=== PATIENT | female | born 1970 | race Caucasian/White ===

== ENCOUNTER 2024-04-19 15:40 | Emergency (ER) | payer OTHER, SELFPAY ==
[2024-04-19 15:58] VITALS: BP 127/83; PULSE 77; RESP 16; TEMP 36.6; O2SAT 100
[2024-04-19 16:31] LABS: EDCOVIDSCREEN Negative (Negative); EDINFLUASCREEN Positive (Negative); EDINFLUBSCREEN Negative (Negative); EDSTREPNEGPOS1 Negative (Negative)
--- NOTE | 2024-04-19 16:34 | ED.GENADULT ---
HPI - General Adult General Chief complaint: Upper Respiratory Infection Stated complaint: Upper Respiratory Symptoms Source: patient Mode of arrival: ambulatory Limitations: no limitations History of Present Illness HPI narrative: Patient presents for evaluation of sick symptoms. Symptom onset initially 5 days ago. She had improvement in her symptoms and then symptom recurrence two days ago. Symptoms include cough, wheezing, fever, sore throat, ear pain and diarrhea. She denies any vomiting and chills. She tried taking dayquil and chloraseptic for her symptoms. She has been around several individuals with been sick as of late but she is not aware of a specific assigned medical diagnosis. She does not smoke. Related Data Home Medications ?Medication ?Instructions ?Recorded ?Confirmed ?Last Taken ?Type azelastine 137 mcg (0.1 %) nasal 2 spray intranasal Q12H 04/19/24 04/19/24 Unknown History spray buspirone 10 mg tablet 10 mg PO TID 04/19/24 04/19/24 Unknown History carvedilol 12.5 mg tablet 12.5 mg PO DAILY 04/19/24 04/19/24 Unknown History escitalopram oxalate 10 mg tablet 10 mg PO DAILY 04/19/24 04/19/24 Unknown History escitalopram oxalate 20 mg tablet 20 mg PO DAILY 04/19/24 04/19/24 Unknown History estradiol 1 mg tablet 1 mg PO DAILY 04/19/24 04/19/24 Unknown History furosemide 20 mg tablet 20 mg PO DAILY 04/19/24 04/19/24 Unknown History gabapentin 300 mg capsule 300 mg PO DAILY 04/19/24 04/19/24 Unknown History peg 3350-electrolytes 236 30 ml PO DAILY 04/19/24 04/19/24 Unknown History gram-22.74 gram-6.74 gram-5.86 gram solution (GaviLyte-G) sacubitril 97 mg-valsartan 103 mg 1 tablet PO BID 04/19/24 04/19/24 Unknown History tablet (Entresto) Allergies Allergy/AdvReac Type Severity Reaction Status Date / Time No Known Allergies Allergy Verified 04/19/24 15:51 Review of Systems Review of Systems: CONSTITUTIONAL: Reports fever and recent diaphoresis EYES: Denies visual changes, redness, or discharge. ENT: Reports sore throat and bilateral otalgia. Denies sinus congestion. CARDIOVASCULAR: Denies chest pain, palpitations, or edema. RESPIRATORY: Reports cough and wheezing GASTROINTESTINAL: Reports diarrhea. Denies abdominal pain, nausea, or vomiting. GENITOURINARY: Denies dysuria or hematuria. SKIN: Denies rash or itching. MUSCULOSKELETAL: Reports generalized body aches NEUROLOGIC: Denies headache, numbness, dizziness, or weakness. PSYCHIATRIC: Denies anxiety or depression. FOR[facility], [facility] Past Medical History Medical History Congenital heart defect Surgical History Surgical History History of open heart surgery Family History Family History Mother Family history non-contributory Social History Social History (Updated 04/19/24 @ 16:43 by MO PelaezP, ) Smoking status: Never smoker Substance use: never Gender identity (if verbalized by the patient): Female Spiritual care concerns: No Exam Narrative: GENERAL: Well-appearing, well-nourished, and in no acute distress. HEAD: Normocephalic, atraumatic. EYES: PERRLA and EOMI. ENT: Nares clear, no rhinorrhea or epistaxis. Mucous membranes moist. Oropharynx without tonsillar hypertrophy exudate or other lesions. Bilateral TMs pearly woodruff nonbulging NECK: Supple. No adenopathy or masses. No carotid bruits or JVD CHEST: Clear to auscultation. No respiratory distress. No wheezes rales or rhonchi HEART: Regular rate and rhythm. No murmur heard. Normal peripheral pulses. ABDOMEN: Soft, nontender, nondistended, normal active bowel sounds. EXTREMITIES: Normal range of motion. No edema. SKIN: Warm, dry, no rash. NEURO: No focal deficits. Alert and oriented x3. PSYCH: Normal mood and affect. Course Course Emergency Course: This is a 53 year old female who presented for evaluation of sick symptoms. Strep and COVID negative. Influenza positive. Date of symptom onset somewhat unclear as she had recurrence of symptoms about 48 hrs ago. Will dc with tamiflu. Increase hydration. OTC agents for symptom management. Follow up with primary care provider. Go to the ER for worsening symptoms. Pt in agreement with plan of care. Level of Care: Express Care Visit Vital Signs Vital signs: Vital Signs Temperature 36.6 C 04/19/24 15:58 Pulse Rate 77 04/19/24 15:58 Respiratory Rate 16 04/19/24 15:58 Blood Pressure 127/83 04/19/24 15:58 Pulse Oximetry 100 04/19/24 15:58 Temperature 36.6 C 04/19/24 15:58 Pulse Rate 77 04/19/24 15:58 Respiratory Rate 16 04/19/24 15:58 Blood Pressure 127/83 04/19/24 15:58 Pulse Oximetry 100 04/19/24 15:58 Medical Decision Making Vital Signs Vital Signs: Vital Signs Temperature 36.6 C 04/19/24 15:58 Pulse Rate 77 04/19/24 15:58 Respiratory Rate 16 04/19/24 15:58 Blood Pressure 127/83 04/19/24 15:58 Pulse Oximetry 100 04/19/24 15:58 Temperature 36.6 C 04/19/24 15:58 Pulse Rate 77 04/19/24 15:58 Respiratory Rate 16 04/19/24 15:58 Blood Pressure 127/83 04/19/24 15:58 Pulse Oximetry 100 04/19/24 15:58 Lab Data Labs: Lab Results 04/19/24 Range/Units 16:29 POC Influenza A Ag Positive (Negative) POC Influenza B Ag Negative (Negative) POC SARS CoV-2 Ag Negative (Negative) POC Grp A Strep Screen Negative (Negative) Discharge Plan Discharge Clinical Impression: Influenza A Patient Disposition: Home, Self-Care Condition: Stable Instructions: Antibiotic Form, Influenza (ED) Patient Language: Russian Prescriptions: New oseltamivir [Tamiflu] 75 mg capsule 75 mg PO Q12H 5 Days Qty: 10 0RF No Action sacubitril-valsartan [Entresto] 97-103 mg tablet 1 tablet PO BID azelastine 137 mcg (0.1 %) spray,non-aerosol 2 spray INTRANASAL Q12H buspirone 10 mg tablet 10 mg PO TID carvedilol 12.5 mg tablet 12.5 mg PO DAILY escitalopram oxalate 10 mg tablet 10 mg PO DAILY escitalopram oxalate 20 mg tablet 20 mg PO DAILY estradiol 1 mg tablet 1 mg PO DAILY furosemide 20 mg tablet 20 mg PO DAILY gabapentin 300 mg capsule 300 mg PO DAILY peg 3350-electrolytes [GaviLyte-G] 236-22.74-6.74 -5.86 gram recon soln 30 ml PO DAILY Follow-up/Referrals: Shana Daniel DO [Physician] - Time of Disposition: 16:34
== END 2024-04-19 16:39 | disposition home or self-care (01) ==
PROVIDERS: Emergency Provider Nurse Practitioner
DX: J10.1 Influenza due to other identified influenza virus with other respiratory manifestations (principal); Z79.899 Other long term (current) drug therapy; Z20.822 Contact with and (suspected) exposure to COVID-19
CPT/HCPCS: 87081; 87426; 87804; 87880; 99203; G0463

== ENCOUNTER 2025-01-15 18:37 | Emergency (ER) | payer OTHER, SELFPAY ==
--- NOTE | ~2025-01-15 | CT_ITS ---
CT abdomen pelvis w con Clinical History: bilateral back pain radiates to abdomen . Comparison: None Technique: Axial images lung bases to symphysis pubis 100 mL Omnipaque 350 Coronal, sagittal reformats CT images acquired with automatic exposure control for dose reduction DLP: 265 mGy-cm Findings: Lung bases: Clear. Visualized heart and pericardium: Unremarkable. Liver: Enlarged. Steatosis. A few cysts. Gallbladder: Unremarkable. Spleen: Unremarkable. Pancreas: Unremarkable. Adrenal glands: Unremarkable. Kidneys: Right kidney- No hydronephrosis. A few stones. Left kidney- No hydronephrosis. A few stones. Cortical thinning. Subtle areas of decreased enhancement Distal esophagus/stomach: Gastric antral wall thickening. Small bowel loops: Normal caliber and wall thickness. Colon: Diverticula. Normal caliber and wall thickness. Normal RLQ appendix. Nodes: No enlarged nodes. Peritoneum: No ascites. No free air. Urinary bladder: Unremarkable. Uterus: Removed. Adnexa: No masses. Bones: No acute bony abnormality. Grade 1 anterolisthesis L4 on 5. Soft tissues: Unremarkable. Aorta: No aneurysm or dissection. Mild atherosclerotic disease. IVC: Unremarkable. Main portal vein/SMV/splenic vein: Patent. IMPRESSION: 1. Bilateral renal stones. No hydronephrosis. 2. Mild pyelonephritis left kidney not excluded. 3. Mild gastric antritis not excluded. 4. Additional findings as above. Reviewed, dictated and finalized at location R. 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
[2025-01-15 19:19] VITALS: BP 128/77; PULSE 84; RESP 14; TEMP 36.6; O2SAT 99
--- NOTE | 2025-01-15 22:59 | ED.NAVMDI ---
HPI - Nausea/Vomiting/Diarrhea General Chief complaint: Nausea/Vomiting/Diarrhea <Kaylan Hand APRN - Last Filed: 01/16/25 04:29> Stated complaint: back pain, nausea <Kaylan Hand APRN - Last Filed: 01/16/25 04:29> Time Seen by Provider: 01/15/25 21:57 <Kaylan Hand APRN - Last Filed: 01/16/25 04:29> History of Present Illness HPI Narrative: Patient is a 54-year-old female who presents to the ER with abdominal pain and nausea that has been going on for ?a while. She endorses decreased p.o. intake and reports the nausea has progressively gotten worse. Patient denies any recent fevers, vomiting, or urinary symptoms. She also endorses pain that starts in her lower back and radiates to her hips bilaterally. Patient reports her last bowel movement was yesterday. She reports she has had a upper and lower GI scope in the past with no acute findings. Patient endorses a medical history of open-heart surgery, quadrant cuspid heart valve, and kidney stones that have never obstructed. <Kaylan Hand APRN - Last Filed: 01/16/25 04:29> Related Data Home medications: Home Medications ?Medication ?Instructions ?Recorded ?Confirmed ?Last Taken ?Type azelastine 137 mcg (0.1 %) nasal 2 spray intranasal Q12H 04/19/24 04/19/24 Unknown History spray buspirone 10 mg tablet 10 mg PO TID 04/19/24 04/19/24 Unknown History carvedilol 12.5 mg tablet 12.5 mg PO DAILY 04/19/24 04/19/24 Unknown History escitalopram oxalate 10 mg tablet 10 mg PO DAILY 04/19/24 04/19/24 Unknown History escitalopram oxalate 20 mg tablet 20 mg PO DAILY 04/19/24 04/19/24 Unknown History estradiol 1 mg tablet 1 mg PO DAILY 04/19/24 04/19/24 Unknown History furosemide 20 mg tablet 20 mg PO DAILY 04/19/24 04/19/24 Unknown History gabapentin 300 mg capsule 300 mg PO DAILY 04/19/24 04/19/24 Unknown History peg 3350-electrolytes 236 30 ml PO DAILY 04/19/24 04/19/24 Unknown History gram-22.74 gram-6.74 gram-5.86 gram solution (GaviLyte-G) sacubitril 97 mg-valsartan 103 mg 1 tablet PO BID 04/19/24 04/19/24 Unknown History tablet (Entresto) <Kaylan Hand APRN - Last Filed: 01/16/25 04:29> Allergies/Adverse reactions: Allergies Allergy/AdvReac Type Severity Reaction Status Date / Time No Known Allergies Allergy Verified 04/19/24 15:51 <Kaylan Hand APRN - Last Filed: 01/16/25 04:29> Review of Systems Review of Systems: All systems reviewed & are unremarkable except as noted in HPI and below <Kaylan Hand APRN - Last Filed: 01/16/25 04:29> PMFSH Past Medical History Medical History: Medical History Congenital heart defect <Kaylan Hand APRN - Last Filed: 01/16/25 04:29> Surgical History Surgical History: Surgical History History of open heart surgery <Kaylan Hand APRN - Last Filed: 01/16/25 04:29> Family History Family History: Family History Mother Family history non-contributory <Kaylan Hand APRN - Last Filed: 01/16/25 04:29> Social History Social History: Social History Smoking status: Never smoker Substance use: never Gender identity (if verbalized by the patient): Female Spiritual care concerns: No <Kaylan Hand APRN - Last Filed: 01/16/25 04:29> Exam Narrative: GENERAL: Well appearing, well-nourished, non-toxic, in no acute distress. HEAD: Normocephalic, atraumatic. NECK: Supple. No adenopathy, no masses. RESPIRATORY: Airway patent, respirations nonlabored. Clear to auscultation bilaterally, no rales, rhonchi, wheezing. CARDIOVASCULAR: Regular rate and rhythm without murmurs, rubs, or gallops. Peripheral pulses 2+ and equal bilaterally. ABDOMINAL: Soft, mid abdominal tenderness, nondistended, no hepatosplenomegaly. Normoactive BS. MUSCULOSKELETAL: Moves all extremities. Strength/ROM intact without gross deformities. SKIN: Warm, dry, normal color. No rashes. NEURO: A&O X3. Speech clear. Cranial nerves II-XII intact. No ataxic movements. PSYCHIATRIC: Appropriate mood and affect. Normal interaction. <Kaylan Hand, SAND SIFTER - Last Filed: 01/16/25 04:29> Course Vital Signs Vital signs: Vital Signs Temperature 97.8 F 01/15/25 19:19 Pulse Rate 84 01/15/25 19:19 Respiratory Rate 14 01/15/25 19:19 Blood Pressure 128/77 01/15/25 19:19 Pulse Oximetry 99 01/15/25 19:19 Oxygen Delivery Room Air 01/15/25 19:19 Temperature 97.8 F 01/15/25 19:19 Pulse Rate 78 01/16/25 05:11 Respiratory Rate 20 01/16/25 05:11 Blood Pressure 158/79 H 01/16/25 05:11 Pulse Oximetry 99 01/16/25 05:11 Oxygen Delivery Room Air 01/15/25 19:19 <Kaylan Hand, SAND SIFTER - Last Filed: 01/16/25 04:29> Vital Signs Temperature 97.8 F 01/15/25 19:19 Pulse Rate 84 01/15/25 19:19 Respiratory Rate 14 01/15/25 19:19 Blood Pressure 128/77 01/15/25 19:19 Pulse Oximetry 99 01/15/25 19:19 Oxygen Delivery Room Air 01/15/25 19:19 Temperature 97.8 F 01/15/25 19:19 Pulse Rate 78 01/16/25 05:11 Respiratory Rate 20 01/16/25 05:11 Blood Pressure 158/79 H 01/16/25 05:11 Pulse Oximetry 99 01/16/25 05:11 Oxygen Delivery Room Air 01/15/25 19:19 <Daryn Florentino DO - Last Filed: 01/16/25 05:26> MDM - Nausea/Vomiting/Diarrhea MDM Narrative Medical decision making narrative: Patient is a 54-year-old female who presents to the ER with abdominal pain and nausea that has been going on for ?a while. She endorses decreased p.o. intake and reports the nausea has progressively gotten worse. Patient denies any recent fevers, vomiting, or urinary symptoms. She also endorses pain that starts in her lower back and radiates to her hips bilaterally. Patient reports her last bowel movement was yesterday. She reports she has had a upper and lower GI scope in the past with no acute findings. Patient endorses a medical history of open-heart surgery, quadrant cuspid heart valve, and kidney stones that have never obstructed. Labs Ordered: CBC, CMP, UDS, UA, lipase, PTT, INR Imaging Ordered: CT abdomen pelvis Medications Ordered: 1 L normal saline IV bolus, Pepcid IV, Zofran IV, Protonix IV Results: Patient's CT scan indicates nonobstructing bilateral renal calculi. No obstructive uropathy. Bilateral renal cortical thinning/scarring. Questionable superimposed left renal infection/pyelonephritis. Correlate clinically. Urinary bladder wall thickening, nonspecific. Correlate with urinalysis. No bowel obstruction or inflammation. Normal appendix. Hepatic steatosis and hepatomegaly. Multiple hepatic cysts. Diagnosis: Risks: HEART score, PECARN score, CURB-65 score Consults: <Kaylan Hand APRN - Last Filed: 01/16/25 04:29> Patient is a 54-year-old female who presents to the ER with abdominal pain and nausea that has been going on for ?a while. She endorses decreased p.o. intake and reports the nausea has progressively gotten worse. Patient denies any recent fevers, vomiting, or urinary symptoms. She also endorses pain that starts in her lower back and radiates to her hips bilaterally. Patient reports her last bowel movement was yesterday. She reports she has had a upper and lower GI scope in the past with no acute findings. Patient endorses a medical history of open-heart surgery, quadrant cuspid heart valve, and kidney stones that have never obstructed. Labs Ordered: CBC, CMP, UDS, UA, lipase, PTT, INR Imaging Ordered: CT abdomen pelvis Medications Ordered: 1 L normal saline IV bolus, Pepcid IV, Zofran IV, Protonix IV Results: Patient's CT scan indicates nonobstructing bilateral renal calculi. No obstructive uropathy. Bilateral renal cortical thinning/scarring. Questionable superimposed left renal infection/pyelonephritis. Correlate clinically. Urinary bladder wall thickening, nonspecific. Correlate with urinalysis. No bowel obstruction or inflammation. Normal appendix. Hepatic steatosis and hepatomegaly. Multiple hepatic cysts. Diagnosis: Nausea and vomiting This visit was performed by both a physician and an Advanced Practice Provider. I performed all aspects of the Medical Decision Making as documented. On re-evaluation, Patient was feeling significantly better. Given CT findings and lab findings as above, she will require further evaluation by GI. She will be given a prescription for Zofran. Patient was agreeable to this plan. Given strict return precautions. <Daryn Florentino DO - Last Filed: 01/16/25 05:26> Lab Data Attestation: I reviewed the patient's lab results. <Daryn Florentino DO - Last Filed: 01/16/25 05:26> Result diagrams: 01/15/25 23:17 01/15/25 23:17 <Kaylan Hand, SAND SIFTER - Last Filed: 01/16/25 04:29> Labs: Lab Results 01/15/25 01/16/25 Range/Units 23:17 00:22 WBC 5.4 (4.5-10.0) K/mm3 RBC 4.06 L (4.2-5.4) M/mm3 Hgb 13.6 (12.0-15.0) g/dL Hct 39.2 (37.0-47.0) % MCV 96.6 (80-100) fl MCH 33.5 (26-34) pg MCHC 34.7 (32-36) g/dl RDW 15.2 H (11.5-14.5) % Plt Count 183 (150-375) k/mm3 MPV 10.4 (7.4-10.4) fl Immature Gran % (Auto) 0.4 (0-0.5) % Neut % (Auto) 50.8 (45.5-73.1) % Lymph % (Auto) 31.3 (18.3-44.2) % [place] % (Auto) 15.5 H (2.6-8.5) % Eos % (Auto) 1.3 (0-4.4) % Baso % (Auto) 0.7 (0.2-1.2) % Lymph # (Auto) 1.68 (0.9-3.2) K/mm3 [place] # (Auto) 0.8 H (0.1-0.6) K/mm3 Eos # (Auto) 0.1 (0-0.3) K/mm3 Baso # (Auto) 0.0 (0.0-0.1) K/mm3 Abs Immat Gran (auto) 0.02 (0.00-0.031) K/mm3 Absolute Neuts (auto) 2.7 (1.3-6.7) K/mm3 Absolute Nucleated RBC 0.000 (0.0-0.012) K/mm3 Nucleated RBC % 0.0 (0.0-0.2) % PT 15.6 H (11.1-14.7) Seconds INR 1.2 APTT 31.1 (22.3-36.8) Seconds Sodium 132 L (137-145) mmol/L Potassium 4.1 (3.4-5.0) mmol/L Chloride 104 (98-107) mmol/L Carbon Dioxide 21 L (22-30) mmol/L Anion Gap 7 (4-12) mmol/L BUN 35 H (7-17) mg/dL Creatinine 1.00 (0.7-1.0) mg/dL Estim Creat Clear Calc 44 ml/min Estimated GFR 58 L (59 - ) Glucose 90 (65-110) mg/dL Calcium 8.3 L (8.4-10.2) mg/dL Total Bilirubin 1.3 (0.2-1.3) mg/dL AST 228 H (14-36) U/L ALT 136 H (6-35) U/L Alkaline Phosphatase 89 (38-126) U/L Total Protein 6.6 (6.3-8.2) g/dL Albumin 3.6 (3.5-5.1) g/dL Lipase 230 (23-300) U/L Urine Color Yellow (Yellow) Urine Appearance Clear (Clear) Urine pH 5.0 (5.0-9.0) Ur Specific [place] 1.024 (1.001-1.035) Urine Protein Negative (Negative) mg/dL Urine Glucose (UA) Negative (Negative) mg/dL Urine Ketones Trace H (Negative) mg/dL Ur Blood (Man) Negative (Negative) Urine Nitrate Negative (Negative) Urine Bilirubin Negative (Negative) Urine Urobilinogen 0.2 (<2.0) mg/dL Leukocyte Esterase Rfl Negative (Negative) IRWIN/UL Urine Opiates Screen Negative (Negative) Urine Methadone Screen Negative (Negative) Ur Barbiturates Screen Negative (Negative) Ur Phencyclidine Scrn Negative (Negative) Ur Amphetamine Screen Negative (Negative) U Benzodiazepines Scrn Negative (Negative) Urine Cocaine Screen Negative (Negative) U Cannabinoids Screen Positive A (Negative) <Kaylan Hand, SAND SIFTER - Last Filed: 01/16/25 04:29> Lab Results 01/15/25 01/16/25 Range/Units 23:17 00:22 WBC 5.4 (4.5-10.0) K/mm3 RBC 4.06 L (4.2-5.4) M/mm3 Hgb 13.6 (12.0-15.0) g/dL Hct 39.2 (37.0-47.0) % MCV 96.6 (80-100) fl MCH 33.5 (26-34) pg MCHC 34.7 (32-36) g/dl RDW 15.2 H (11.5-14.5) % Plt Count 183 (150-375) k/mm3 MPV 10.4 (7.4-10.4) fl Immature Gran % (Auto) 0.4 (0-0.5) % Neut % (Auto) 50.8 (45.5-73.1) % Lymph % (Auto) 31.3 (18.3-44.2) % [place] % (Auto) 15.5 H (2.6-8.5) % Eos % (Auto) 1.3 (0-4.4) % Baso % (Auto) 0.7 (0.2-1.2) % Lymph # (Auto) 1.68 (0.9-3.2) K/mm3 [place] # (Auto) 0.8 H (0.1-0.6) K/mm3 Eos # (Auto) 0.1 (0-0.3) K/mm3 Baso # (Auto) 0.0 (0.0-0.1) K/mm3 Abs Immat Gran (auto) 0.02 (0.00-0.031) K/mm3 Absolute Neuts (auto) 2.7 (1.3-6.7) K/mm3 Absolute Nucleated RBC 0.000 (0.0-0.012) K/mm3 Nucleated RBC % 0.0 (0.0-0.2) % PT 15.6 H (11.1-14.7) Seconds INR 1.2 APTT 31.1 (22.3-36.8) Seconds Sodium 132 L (137-145) mmol/L Potassium 4.1 (3.4-5.0) mmol/L Chloride 104 (98-107) mmol/L Carbon Dioxide 21 L (22-30) mmol/L Anion Gap 7 (4-12) mmol/L BUN 35 H (7-17) mg/dL Creatinine 1.00 (0.7-1.0) mg/dL Estim Creat Clear Calc 44 ml/min Estimated GFR 58 L (59 - ) Glucose 90 (65-110) mg/dL Calcium 8.3 L (8.4-10.2) mg/dL Total Bilirubin 1.3 (0.2-1.3) mg/dL AST 228 H (14-36) U/L ALT 136 H (6-35) U/L Alkaline Phosphatase 89 (38-126) U/L Total Protein 6.6 (6.3-8.2) g/dL Albumin 3.6 (3.5-5.1) g/dL Lipase 230 (23-300) U/L Urine Color Yellow (Yellow) Urine Appearance Clear (Clear) Urine pH 5.0 (5.0-9.0) Ur Specific [place] 1.024 (1.001-1.035) Urine Protein Negative (Negative) mg/dL Urine Glucose (UA) Negative (Negative) mg/dL Urine Ketones Trace H (Negative) mg/dL Ur Blood (Man) Negative (Negative) Urine Nitrate Negative (Negative) Urine Bilirubin Negative (Negative) Urine Urobilinogen 0.2 (<2.0) mg/dL Leukocyte Esterase Rfl Negative (Negative) IRWIN/UL Urine Opiates Screen Negative (Negative) Urine Methadone Screen Negative (Negative) Ur Barbiturates Screen Negative (Negative) Ur Phencyclidine Scrn Negative (Negative) Ur Amphetamine Screen Negative (Negative) U Benzodiazepines Scrn Negative (Negative) Urine Cocaine Screen Negative (Negative) U Cannabinoids Screen Positive A (Negative) <Daryn Florentino DO - Last Filed: 01/16/25 05:26> Discharge Plan Discharge Clinical Impression: Acute hyponatremia, Transaminitis Nausea and vomiting Qualifiers: Vomiting type: unspecified Qualified Code(s): R11.2 - Nausea with vomiting, unspecified <Kaylan Hand APRN - Last Filed: 01/16/25 04:29> Patient Disposition: Home <Kaylan Hand APRN - Last Filed: 01/16/25 04:29> Condition: Stable <Kaylan Hand APRN - Last Filed: 01/16/25 04:29> Instructions: Antibiotic Form, Acute Nausea and Vomiting (ED) <Kaylan Hand APRN - Last Filed: 01/16/25 04:29> Additional Instructions: Your given a prescription for Zofran take this as prescribed. You were found to have elevated liver enzymes so a CT scan was obtained which did show some benign-appearing cysts. 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 You were given a referral to Dr. Gaxiola, if you cannot get in with your own outside plant field engineer. Return to the ED for any new or worsening symptoms. <Kaylan Hand APRN - Last Filed: 01/16/25 04:29> Patient Language: Mongolian <Kaylan Hand APRN - Last Filed: 01/16/25 04:29> Prescriptions: New ondansetron 4 mg tablet,disintegrating 4 mg PO Q8H PRN (Reason: nausea and vomiting) Qty: 14 0RF No Action sacubitril-valsartan [Entresto] 97-103 mg tablet 1 tablet PO BID azelastine 137 mcg (0.1 %) spray,non-aerosol 2 spray INTRANASAL Q12H buspirone 10 mg tablet 10 mg PO TID carvedilol 12.5 mg tablet 12.5 mg PO DAILY escitalopram oxalate 10 mg tablet 10 mg PO DAILY escitalopram oxalate 20 mg tablet 20 mg PO DAILY estradiol 1 mg tablet 1 mg PO DAILY furosemide 20 mg tablet 20 mg PO DAILY gabapentin 300 mg capsule 300 mg PO DAILY peg 3350-electrolytes [GaviLyte-G] 236-22.74-6.74 -5.86 gram recon soln 30 ml PO DAILY oseltamivir [Tamiflu] 75 mg capsule 75 mg PO Q12H 5 Days Qty: 10 0RF <Kaylan Hand, MAGGIE - Last Filed: 01/16/25 04:29> Follow-up/Referrals: PHYSICIAN,HUB BORER [Primary Care Provider, Internal Medicine] Rafael Gaxiola MD [Physician, Gastroenterology] <Kaylan Hand, SAND SIFTER - Last Filed: 01/16/25 04:29>
[2025-01-15] MEDS: SODIUM CHLORIDE 0.9% IV 1,000 ML 999 ML IV CONT (23:08)
[2025-01-15] MEDS: PANTOPRAZOLE SODIUM IV 40 MG VIAL IV PUSH (23:13)
[2025-01-15] MEDS: FAMOTIDINE 20 MG/2 ML VIAL IV PUSH (23:13)
[2025-01-15] MEDS: ONDANSETRON INJ 4 MG/2 ML VIAL IV PUSH (23:13)
[2025-01-15 23:15] VITALS: BP 122/92; PULSE 68; RESP 20; O2SAT 99
[2025-01-15 23:20] VITALS: BP 122/92; PULSE 69; RESP 19; O2SAT 99
[2025-01-15 23:21] LABS: Hematocrit 39.2 % (37.0-47.0); Hemoglobin 13.6 g/dL (12.0-15.0); Immature Granulocyte Percent A 0.4 % (0-0.5); Lymphocytes Absolute Auto 1.68 K/mm3 (0.9-3.2); Mean Corpuscular HGB Conc 34.7 g/dl (32-36); Mean Corpuscular Hemoglobin 33.5 pg (26-34); Mean Corpuscular Volume 96.6 fl (80-100); Nucleated Red Blood Cells Absolute Auto 0.000 K/mm3 (0.0-0.012); Nucleated Red Blood Cells Perc 0.0 % (0.0-0.2); Platelet Count Result 183 k/mm3 (150-375); Red Blood Count 4.06 M/mm3 (4.2-5.4); White Blood Count 5.4 K/mm3 (4.5-10.0)
[2025-01-15 23:31] VITALS: BP 157/88; PULSE 71; RESP 19; O2SAT 100
[2025-01-15 23:34] LABS: INR 1.2; Partial Thromboplastin Time 31.1 Seconds (22.3-36.8); Prothrombin Time 15.6 Seconds (11.1-14.7)
[2025-01-15 23:46] VITALS: BP 145/75; PULSE 70; RESP 23; O2SAT 100
[2025-01-16] VITALS (12 sets, daily range): BP systolic 158–164; BP diastolic 79–96; PULSE 64–86; RESP 15–36; O2SAT 99–100
[2025-01-16 00:07] LABS: Alanine Aminotransferase 136 U/L (6-35); Albumin Level 3.6 g/dL (3.5-5.1); Alkaline Phosphatase 89 U/L (38-126); Anion Gap 7 mmol/L (4-12); Aspartate Amino Transferase 228 U/L (14-36); Bilirubin,Total 1.3 mg/dL (0.2-1.3); Blood Urea Nitrogen 35 mg/dL (7-17); Calcium 8.3 mg/dL (8.4-10.2); Carbon Dioxide 21 mmol/L (22-30); Chloride 104 mmol/L (98-107); Estimated CRCL calculation 44 ml/min; Estimated Glomerular Filt Rate 58; Glucose 90 mg/dL (65-110); Potassium 4.1 mmol/L (3.4-5.0); Sodium 132 mmol/L (137-145); Total Protein 6.6 g/dL (6.3-8.2)
[2025-01-16 00:21] LABS: Lipase 230 U/L (23-300)
[2025-01-16 00:47] LABS: Cannabinoid Screen Urine Positive (Negative)
[2025-01-16 01:06] LABS: Add Urine Microscopic? NO; Appearance Urine Clear (Clear); Glucose Urine UA Negative (Negative); Leukocyte Esterase Ur Negative LEU/UL (Negative); Nitrate Urine Negative (Negative); Specific Grav Ur 1.024 (1.001-1.035)
[2025-01-16] MEDS: ONDANSETRON INJ 4 MG/2 ML VIAL IV PUSH (05:19)
== END 2025-01-16 05:21 | disposition home or self-care (01) ==
PROVIDERS: Emergency Provider Registered Nurse
DX: E87.1 Hypo-osmolality and hyponatremia (principal); R74.01 Elevation of levels of liver transaminase levels
CPT/HCPCS: 36415; 74177; 80053; 80307; 81003; 83690; 85025; 85610; 85730; 96361; 96374; 96375; 99284; J2405; J2470; J7030; Q9967